=== PATIENT | female | born 1960 | race Caucasian/White ===

== ENCOUNTER → 2016-08-07 | Outpatient (CLI) | payer MEDICARE, MEDICAID ==
[2016-08-07 15:10] LABS: ALBUMIN 3.6 GM/DL (3.2-5.2); ALBUMIN/GLOBULIN RATIO 0.97 (1.00-1.93); ALKALINE PHOSPHATASE 57 U/L (45-117); ALT/SGPT 40 U/L (12-78); ANION GAP 6 MEQ/L (8-16); AST/SGOT 23 U/L (15-37); BILIRUBIN,TOTAL 0.4 MG/DL (0.2-1.0); BLOOD UREA NITROGEN 20 MG/DL (7-18); CARBON DIOXIDE LEVEL 32 MEQ/L (21-32); CHLORIDE LEVEL 104 MEQ/L (98-107); CHOLESTEROL LEVEL 218 MG/DL (<200); CREATININE FOR GFR 0.96 MG/DL (0.55-1.02); GLOMERULAR FILTRATION RATE > 60.0 (>51); GLUCOSE, FASTING 110 MG/DL (70-105); MAGNESIUM LEVEL 2.1 MG/DL (1.8-2.4); POTASSIUM SERUM 4.1 MEQ/L (3.5-5.1); SODIUM LEVEL 142 MEQ/L (136-145); TOTAL PROTEIN 7.3 GM/DL (6.4-8.2); TRIGLYCERIDES LEVEL 141 MG/DL (<150)
== END ==
LOC: M LAB 14:19 → MERGE 14:19
PROVIDERS: ATTEND Physician Assistant
DX: I50.33 Acute on chronic diastolic (congestive) heart failure (principal); E78.00 Pure hypercholesterolemia, unspecified

== ENCOUNTER → 2016-09-17 | Outpatient (CLI) | payer MEDICARE, MEDICAID ==
[2016-09-17 21:00] LABS: ALBUMIN 3.8 GM/DL (3.2-5.2); CREATININE FOR GFR 1.07 MG/DL (0.55-1.02); GLOMERULAR FILTRATION RATE 56.7 (>51); PHOSPHORUS LEVEL 2.7 MG/DL (2.5-4.9); POTASSIUM SERUM 3.7 MEQ/L (3.5-5.1)
== END ==
LOC: M LAB 19:21
PROVIDERS: ATTEND Physician Assistant
DX: I50.33 Acute on chronic diastolic (congestive) heart failure (principal)

== ENCOUNTER → 2016-10-31 | Outpatient (CLI) | payer MEDICARE, MEDICAID ==
[2016-10-31 13:57] LABS: ALBUMIN 3.5 GM/DL (3.2-5.2); CALCIUM LEVEL 8.4 MG/DL (8.5-10.1); CREATININE FOR GFR 1.05 MG/DL (0.55-1.02); GLOMERULAR FILTRATION RATE 57.9 (>51); PHOSPHORUS LEVEL 2.5 MG/DL (2.5-4.9); POTASSIUM SERUM 3.3 MEQ/L (3.5-5.1)
== END ==
LOC: M LAB 12:47
PROVIDERS: ATTEND Physician Assistant
DX: I50.33 Acute on chronic diastolic (congestive) heart failure (principal)

== ENCOUNTER → 2017-01-28 | Outpatient (CLI) | payer MEDICARE, MEDICAID ==
[2017-01-28 15:23] LABS: ALBUMIN 3.4 GM/DL (3.2-5.2); ANION GAP 8 MEQ/L (8-16); BLOOD UREA NITROGEN 15 MG/DL (7-18); CALCIUM LEVEL 8.9 MG/DL (8.5-10.1); CARBON DIOXIDE LEVEL 30 MEQ/L (21-32); CHLORIDE LEVEL 108 MEQ/L (98-107); CREATININE FOR GFR 0.97 MG/DL (0.55-1.02); GLOMERULAR FILTRATION RATE > 60.0 (>51); GLUCOSE, FASTING 126 MG/DL (70-105); MAGNESIUM LEVEL 2.1 MG/DL (1.8-2.4); PHOSPHORUS LEVEL 3.1 MG/DL (2.5-4.9); POTASSIUM SERUM 3.8 MEQ/L (3.5-5.1); SODIUM LEVEL 146 MEQ/L (136-145)
== END ==
LOC: M LAB 13:42
PROVIDERS: ATTEND Physician Assistant
DX: I50.33 Acute on chronic diastolic (congestive) heart failure (principal)

== ENCOUNTER → 2017-06-29 | Outpatient (CLI) | payer MEDICARE, MEDICAID ==
[2017-06-29 10:31] LABS: ALBUMIN 3.6 GM/DL (3.2-5.2); ANION GAP 6 MEQ/L (8-16); BLOOD UREA NITROGEN 19 MG/DL (7-18); CALCIUM LEVEL 9.4 MG/DL (8.5-10.1); CARBON DIOXIDE LEVEL 33 MEQ/L (21-32); CHLORIDE LEVEL 100 MEQ/L (98-107); CREATININE FOR GFR 1.09 MG/DL (0.55-1.02); GLOMERULAR FILTRATION RATE 55.3 (>51); GLUCOSE, FASTING 127 MG/DL (70-105); PHOSPHORUS LEVEL 3.3 MG/DL (2.5-4.9); POTASSIUM SERUM 3.9 MEQ/L (3.5-5.1); SODIUM LEVEL 139 MEQ/L (136-145)
== END ==
LOC: M LAB 08:46
DX: I50.33 Acute on chronic diastolic (congestive) heart failure (principal)
CPT/HCPCS: 80069

== ENCOUNTER → 2018-05-04 | Outpatient (CLI) | payer MEDICARE, MEDICAID ==
[2018-05-04 12:03] LABS: ANION GAP 7 MEQ/L (8-16); BLOOD UREA NITROGEN 20 MG/DL (7-18); CALCIUM LEVEL 8.5 MG/DL (8.5-10.1); CARBON DIOXIDE LEVEL 34 MEQ/L (21-32); CHLORIDE LEVEL 102 MEQ/L (98-107); CREATININE FOR GFR 1.21 MG/DL (0.55-1.30); GLOMERULAR FILTRATION RATE 48.8 (>51); GLUCOSE, FASTING 133 MG/DL (70-100); SODIUM LEVEL 143 MEQ/L (136-145)
== END ==
LOC: M LAB 10:28
DX: I50.32 Chronic diastolic (congestive) heart failure (principal)
CPT/HCPCS: 80048

== ENCOUNTER → 2018-09-10 | Outpatient (CLI) | payer MEDICARE, MEDICAID ==
[2018-09-10 10:54] LABS: CALCIUM LEVEL 8.8 MG/DL (8.5-10.1); CREATININE FOR GFR 1.03 MG/DL (0.55-1.30); GLOMERULAR FILTRATION RATE 58.8 (>51)
== END ==
LOC: M LAB 09:44
PROVIDERS: ATTEND Physician Assistant
DX: I50.32 Chronic diastolic (congestive) heart failure (principal)

== ENCOUNTER 2018-10-15 11:04 | Emergency (ER) | payer MEDICARE, MEDICAID ==
[2018-10-15] MEDS ORDERED: RANI150T14 (11:11)
[2018-10-15] MEDS ORDERED: POTA20TA6 (11:11)
[2018-10-15] MEDS ORDERED: PANT40TA3 (11:11)
[2018-10-15] MEDS ORDERED: CARV12.5 (11:11)
[2018-10-15] MEDS ORDERED: LISI-538 (11:11)
[2018-10-15] MEDS ORDERED: SPIR-10 (11:11)
[2018-10-15] MEDS ORDERED: TORS20TA2 (11:11)
[2018-10-15 11:34] LABS: BASO % 0.3 % (0.0-1.0); EOS # 0.3 10^3/uL (0.0-0.50); EOS % 2.5 % (0.0-3.0); HEMATOCRIT 42.3 % (36.0-47.0); HEMOGLOBIN 13.6 g/dl (12.0-15.5); LYMPH # 1.6 10^3/uL (1.5-4.5); MEAN CORPUSCULAR HEMOGLOBIN 29.1 pg (27.0-33.0); MEAN CORPUSCULAR HGB CONC 32.2 g/dl (32.0-36.5); MEAN CORPUSCULAR VOLUME 90.4 fl (80.0-96.0); MONO # 0.6 10^3/uL (0.0-0.8); MONO % 6.1 % (0.0-5.0); NEUTROPHILS # 7.5 10^3/uL (1.8-7.7); NEUTROPHILS % 74.7 % (36.0-66.0); PLATELET COUNT, AUTOMATED 306 10^3/uL (150-450); RED BLOOD COUNT 4.68 10^6/uL (4.00-5.40)
[2018-10-15 11:45] LABS: INR 0.93; PROTHROMBIN TIME 12.6 SECONDS (12.1-14.4)
[2018-10-15 11:46] LABS: PARTIAL THROMBOPLASTIN TIME 26.1 SECONDS (25.4-37.6)
--- NOTE | 2018-10-15 12:16 | REP ---
CHEST X-RAY: Two views. HISTORY: Chest pain. COMPARISON STUDY: November 19 1013. FINDINGS: EKG electrodes are seen. Moderate cardiac enlargement is again noted unchanged. Cardiothoracic ratio today measures 58.1%. Pulmonary vasculature is cephalized. No pleural effusion or pulmonary edema is seen. No focal infiltrate is seen. No significant bony abnormality. There is a minimal linear density in the left perihilar region consistent with plate-like atelectasis. Lung pat are otherwise clear. IMPRESSION: Moderate cardiac enlargement. There is minimal linear plate-like atelectasis on the left at midlung field level. Vascular cephalization. Otherwise no acute disease. Electronically Signed by Frank Pappas MD 10/15/2018 01:10 P
[2018-10-15 12:21] LABS: ALBUMIN 3.7 GM/DL (3.2-5.2); ALT/SGPT 35 U/L (12-78); BILIRUBIN,DIRECT 0.1 MG/DL (0.0-0.2); BILIRUBIN,TOTAL 0.5 MG/DL (0.2-1.0); BLOOD UREA NITROGEN 13 MG/DL (7-18); CARBON DIOXIDE LEVEL 32 MEQ/L (21-32); CHLORIDE LEVEL 103 MEQ/L (98-107); CPK CREATINE PHOSPHOKINASE 81 U/L (26-192); CREATININE FOR GFR 1.06 MG/DL (0.55-1.30); FREE T4 1.09 NG/DL (0.76-1.46); GLOMERULAR FILTRATION RATE 56.9 (>51); GLUCOSE, FASTING 125 MG/DL (70-100); MB/CK RELATIVE INDEX 1.73 (< OR =4); NT-PRO BNP 351 PG/ML (<125); SODIUM LEVEL 141 MEQ/L (136-145); TOTAL PROTEIN 7.7 GM/DL (6.4-8.2); TROPONIN I < 0.02 NG/ML (< 0.10)
[2018-10-15] MEDS ORDERED: FUROSEMIDE 100 MG/10 ML VIAL (J1940) IV ONE (13:00)
[2018-10-15 16:29] VITALS: BP 144/75
--- NOTE | 2018-10-16 07:17 | ECGEPIP ---
Stationary ECG Study [facility] - ED Test Date: 2018-10-15 Pat Name: MIRYAM STINSON Department: Room: - Gender: F Sample Card Maker: BREE : 1960 Requested By: MATTHEW Lazaro Order Number: [id number] Reading MD: Nathan Yoo Measurements Intervals Landers Rate: 72 P: 31 MS: 156 QRS: 7 QRSD: 90 T: 45 QT: 423 QTc: 465 Interpretive Statements SINUS RHYTHM MODERATE VOLTAGE CRITERIA FOR LVH, CONSIDER NORMAL VARIANT NO PRIORS FOR COMPARISON Electronically Signed On 10-16-2018 7:17:41 EDT by Nathan Yoo
== END 2018-10-15 16:47 | disposition home or self-care (01) ==
LOC: EDBD 11:04 → M ED 11:04
DX: I50.9 Heart failure, unspecified (principal); I11.0 Hypertensive heart disease with heart failure; E78.5 Hyperlipidemia, unspecified; G47.33 Obstructive sleep apnea (adult) (pediatric); E66.8 Other obesity; Z79.899 Other long term (current) drug therapy
CPT/HCPCS: 71046; 80048; 80076; 82550; 82553; 83880; 84439; 84443; 84484; 85025; 85610; 85730; 93005; 93041; 94760; 96374; 99285; J1940

== ENCOUNTER → 2018-12-04 | Outpatient (REF) | payer MEDICARE, MEDICAID ==
[~2018-12-04] MED LIST: CARV12.5; LISI-538; PANT40TA3; POTA20TA6; RANI150T14; SPIR-10; TORS20TA2
[2018-12-04 18:00] LABS: BASO % 0.3 % (0.0-1.0); EOS # 0.3 10^3/uL (0.0-0.50); EOS % 2.5 % (0.0-3.0); HEMOGLOBIN 12.6 g/dl (12.0-15.5); LYMPH # 1.7 10^3/uL (1.5-4.5); LYMPH % 14.4 % (24.0-44.0); MEAN CORPUSCULAR HEMOGLOBIN 28.7 pg (27.0-33.0); MEAN CORPUSCULAR HGB CONC 32.3 g/dl (32.0-36.5); MEAN CORPUSCULAR VOLUME 88.8 fl (80.0-96.0); MONO # 0.8 10^3/uL (0.0-0.8); MONO % 7.1 % (0.0-5.0); NEUTROPHILS # 8.9 10^3/uL (1.8-7.7); NEUTROPHILS % 75.2 % (36.0-66.0); PLATELET COUNT, AUTOMATED 290 10^3/uL (150-450); RED BLOOD COUNT 4.39 10^6/uL (4.00-5.40); WHITE BLOOD COUNT 11.8 10^3/uL (4.0-10.0)
[2018-12-04 18:08] LABS: ALBUMIN 3.4 GM/DL (3.2-5.2); BILIRUBIN,TOTAL 0.5 MG/DL (0.2-1.0); CALCIUM LEVEL 8.9 MG/DL (8.5-10.1); CHOLESTEROL RISK RATIO 4.458 (<5); CREATININE FOR GFR 1.02 MG/DL (0.55-1.30); GLOMERULAR FILTRATION RATE 59.5 (>51); POTASSIUM SERUM 3.5 MEQ/L (3.5-5.1); THYROID STIMULATING HORMONE 2.78 uIU/ML (0.358-3.740); TOTAL 25(OH) VITAMIN D 10.3 NG/ML (30.0-100.0); TOTAL PROTEIN 7.6 GM/DL (6.4-8.2)
[2018-12-04 18:11] LABS: HEMOGLOBIN A1c 7.4 %
== END ==
LOC: M LAB REF 16:37
PROVIDERS: ATTEND Nurse Practitioner Family
DX: Z13.9 Encounter for screening, unspecified (principal); E78.5 Hyperlipidemia, unspecified; I10 Essential (primary) hypertension; R73.03 Prediabetes; Z79.899 Other long term (current) drug therapy

== ENCOUNTER → 2019-02-09 | Outpatient (CLI) | payer MEDICARE, MEDICAID ==
--- NOTE | 2019-02-11 12:48 | SLEEPCENT ---
DATE OF STUDY: 02/09/2019 ORDERED BY: ALVINA Baltazar Nocturnal polysomnography was performed for evaluation of sleep physiology in this patient with history of excessive somnolence and nonrestorative sleep, who has comorbidities of congestive heart failure, hypertension and acid reflux. 7 hours and 21 minutes of data were reviewed. There were 398 minutes of sleep identified. Sleep latency was normal at 12 minutes. Rapid eye movement (REM) latency was short at 10 minutes. Sleep architecture was fairly well-preserved with 4-5 REM cycles. Overall sleep efficiency 91.7%. The patient's electrocardiogram showed a sinus rhythm with an average heart rate of 64 beats per minute. Electroencephalogram (EEG) showed normal waveforms for awake and sleep. There were 43 respiratory events identified of 10 seconds in duration or greater for an apnea-hypopnea index of 6.5. The events were primarily obstructive, not exclusive to sleep stage but seen in the supine posture. Patient spent the entire night in the supine position with scattered limb activity noted and snoring was seen over the course of the study. IMPRESSION: Obstructive sleep apnea syndrome (G47.33). Apnea-hypopnea index 6.5. RECOMMENDATIONS: Sleep position retraining for avoidance of the supine posture may be helpful. However, if the patient's symptoms persists referral back to sleep disorder center for pressure therapy should be considered.
== END ==
LOC: M SLEEP 19:42
PROVIDERS: ATTEND Nurse Practitioner Family
DX: G47.33 Obstructive sleep apnea (adult) (pediatric) (principal)

== ENCOUNTER → 2019-03-31 | Outpatient (CLI) | payer MEDICARE, MEDICAID ==
--- NOTE | 2019-04-01 19:39 | SLEEPCENT ---
DATE OF PROCEDURE: 03/31/2019 ORDERED BY: ALVINA Baltazar Nocturnal polysomnography was performed for the titration of pressure therapy in this patient with obstructive sleep apnea syndrome. Apnea-hypopnea index is 6.5. For testing the patient was fit with a [employer] AirFit F28 full face mask of medium size, 4 cm of water pressure was initially applied to the circuit, and the lights were extinguished. 7 hours and 28 minutes of data were reviewed. There were 316.5 minutes of sleep identified. Sleep latency was prolonged at 46.5 minutes. Rapid eye movement (REM) latency was short at 55.5 minutes. Sleep architecture was fair. There were some periods of wake, but there were three REM cycles. Overall sleep efficiency 68.7%. The patient's electrocardiogram showed a sinus rhythm with an average heart rate of 64 beats per minute. EEG showed mild coarsening in background, some EKG bleed through. No focal events and normal waveforms for awake and sleep. Persistence of respiratory events prompted an increase in continuous positive airway pressure (CPAP) pressure. Best sleep was seen on a CPAP pressure of +17 with which the patient slept through REM without respiratory event or oxygen desaturation in the supine posture. Some limb activity was noted. There were two trains of 30 events on the study. Limb movement arousal index was only 1.9. IMPRESSION: Obstructive sleep apnea syndrome (G47.33). RECOMMENDATIONS: Nightly use of pressure therapy 17 cm of water.
== END ==
LOC: M SLEEP 19:47
PROVIDERS: ATTEND Nurse Practitioner Family
DX: G47.33 Obstructive sleep apnea (adult) (pediatric) (principal)

== ENCOUNTER → 2019-06-10 | Outpatient (CLI) | payer MEDICARE, MEDICAID ==
--- NOTE | 2019-06-10 14:04 | REP ---
Bilateral lower extremity arterial Doppler ultrasound: History: Chronic venous insufficiency. Lymph edema. Pressure ulcer. Findings: Ankle brachial indices could not be measured due to patient tolerance of the blood pressure cuff. Generally poor image quality was encountered due to edema and patient body habitus. Monophasic waveforms are noted in the right lower extremity from the mid superficial femoral artery distally. Left lower extremity wave forms are abnormal monophasic distal to the common femoral artery bifurcation. Multiple arterial segments could not be seen on either side. Right lower extremity arterial Doppler velocity chart: CF A 145 cm/S Profunda 91 Proximal SFA 128 Mid SFA 148 Distal SFA 132 Popliteal 45 Proximal AT A not seen Tibioperoneal trunk not seen Proximal BRAND AMBASSADOR PROMOTIONAL MODEL not seen Distal BRAND AMBASSADOR PROMOTIONAL MODEL not seen Distal AT A 104 Left lower extremity arterial Doppler velocity chart: CF A 119 cm/S Profunda 64 Proximal SFA 133 Mid SFA 124 Distal SFA not seen Popliteal not seen Proximal AT A not seen Tibioperoneal trunk not seen Proximal BRAND AMBASSADOR PROMOTIONAL MODEL not seen Distal BRAND AMBASSADOR PROMOTIONAL MODEL 72 Distal AT A 103 Electronically Signed by Frank Pappas MD 06/10/2019 01:55 P
== END ==
LOC: M RAD 11:43
PROVIDERS: ATTEND Physician Assistant
DX: I88.0 Nonspecific mesenteric lymphadenitis (principal); I87.311 Chronic venous hypertension (idiopathic) with ulcer of right lower extremity; I87.312 Chronic venous hypertension (idiopathic) with ulcer of left lower extremity; L97.812 Non-pressure chronic ulcer of other part of right lower leg with fat layer exposed; L97.322 Non-pressure chronic ulcer of left ankle with fat layer exposed

== ENCOUNTER → 2019-06-22 | Outpatient (POV) | payer MEDICARE, MEDICAID ==
[~2019-06-22] VITALS: Ht 157.5 cm; Wt 154.5 kg
[2019-06-22 13:15] VITALS: BP 159/79
--- NOTE | 2019-06-23 09:30 | IRCOV ---
[facility] [place] IR Consult Office Visit IR Consult Office Visit DATE: Jun 22, 2019 REASON FOR CONSULTATION/CHIEF COMPLAINT: Venous ulcers. Swelling. HISTORY OF PRESENT ILLNESS: 59-year-old female with diabetes, hypertension, hyperlipidemia and heart failure presents with bilateral lower extremity lymphedema for several months. This is associated with what she describes as water blisters which appear and don't heal easily. She describes tightness in the legs bilaterally which is worse when she walks and relieved by rest. She denies rest pain. She describes the legs burn and itch. She sleeps in a recliner and can't lay flat. She is able to elevate the legs without pain. She has shortness of breath on minimal exertion. Denies chest pain, prior stroke or [place]. ALLERGIES: Please see below. HOME MEDICATIONS: Please see below. PAST MEDICAL HISTORY: Hypertension Hyperlipidemia Type 2 diabetes Sleep apnea COPD PAST SURGICAL HISTORY: Appendectomy FAMILY HISTORY: Noncontributory. SOCIAL HISTORY: Nonsmoker. No alcohol or drugs. REVIEW OF SYSTEMS: Otherwise negative PHYSICAL EXAMINATION: VITAL SIGNS: Please see below. GENERAL APPEARANCE: Appears well. Comfortable at rest. HEENT: No scleral icterus. RESPIRATORY: Symmetric breath sounds. CARDIOVASCULAR: Normal rate. Heart murmur. ABDOMEN: Protuberant. Midline obesity. Nontender. EXTREMITIES: Right lower extremity: Lymphedema. Skin red. Hairless. Warm. Nontender. Pedal pulses nonpalpable. Left lower extremity: Lymphedema. Skin red. Warm. Hairless. Nontender. Pedal pulses nonpalpable. NEUROLOGICAL: Alert and oriented. PSYCHIATRIC: Appropriate to circumstance. LABORATORY DATA: 12/04/2018 hemoglobin 12.6 hematocrit 39 WBC 11.8 platelets 290 sodium 141 potassium 3.5 BUN 16 creatinine 1.02 Imaging: I personally reviewed her lower extremity arterial ultrasound from June 2019. There is abnormal monophasic waveform groin down in the bilateral lower extremities. No venous reflux study available. ASSESSMENT/PLAN: 59-year-old female with coronary risk factors presents with bilateral lower extremity pain and nonhealing ulcers. I agree bilateral lower extremity angiograms to look at inflow, outflow and runoff is indicated. I will also order bilateral lower extremity venous reflux study to look for superficial venous reflux, varicose veins and venous hypertension. If her arteries are acceptable she can then receive high-grade compression for her lymphedema. If she has varicose veins and superficial venous reflux we can perform EVLT. We have scheduled the patient for angiogram and venous ultrasound. I spent 30 minutes in consultation with the patient. Thank you for this referral. Cc Jaye Oconnor Allergies Coded Allergies: No Known Allergies (Verified , 08/07/16) Home Medications Miscellaneous Medications Carvedilol (Carvedilol), (Reported) Lisinopril (Lisinopril), (Reported) Pantoprazole Sodium (Pantoprazole Sodium), (Reported) Potassium Chloride (Potassium Chloride), (Reported) Ranitidine HCl (Ranitidine HCl), (Reported) Spironolactone (Spironolactone), (Reported) Torsemide (Torsemide), (Reported) VS, I&O, 24H, Fishbone Vital Signs/I&O Vital Signs Date Time Temp Pulse Resp B/P (MAP) Pulse Ox O2 Delivery O2 Flow Rate FiO2 06/22/19 13:15 99.1 79 20 159/79 (105) 94 Room Air ROSALIA FUNEZ MD Jun 23, 2019 09:30
== END ==
LOC: M IRPOV 12:56
PROVIDERS: ATTEND Radiology Diagnostic Radiology
DX: E11.622 Type 2 diabetes mellitus with other skin ulcer (principal); L97.929 Non-pressure chronic ulcer of unspecified part of left lower leg with unspecified severity; L97.919 Non-pressure chronic ulcer of unspecified part of right lower leg with unspecified severity; M79.604 Pain in right leg; M79.605 Pain in left leg; I11.9 Hypertensive heart disease without heart failure; E78.5 Hyperlipidemia, unspecified; I89.0 Lymphedema, not elsewhere classified; I50.9 Heart failure, unspecified; G47.33 Obstructive sleep apnea (adult) (pediatric); J44.9 Chronic obstructive pulmonary disease, unspecified

== ENCOUNTER → 2019-07-01 | Outpatient (CLI) | payer MEDICARE, MEDICAID ==
--- NOTE | 2019-07-01 14:27 | REP ---
Bilateral lower extremity deep vein duplex ultrasound: The deep veins demonstrate normal compression, normal Doppler color flow and normal Doppler waveforms with respiration augmentation from the popliteal veins to the common femoral veins bilaterally. Impression: There is no deep vein thrombus in the right or left lower extremities. Lower Extremity Venous Reflux: Positive reflux is greater than 0.5 seconds. Right Reflux Left Reflux CFV Reflux trivial trivial Ant. Acc. GSV Present no no Reflux no no Greater saph/fem junction no mm eight no mm 6.8 Greater saph vein mid thigh no mm 2.6 no mm 5.4 Greater saph vein at knee no mm 8.4 no mm 6.7 SFV PROX no no SFV MID no no SFV DISTAL no no POPLITEAL VEIN -- -- LSV -- mm -- -- mm -- the Impression: There is no reflux on the right or the left. There are pulsatile venous wave forms. This may indicate elevated right heart pressure. Correlation clinically is recommended. Electronically Signed by Gabriel Bruce MD 07/01/2019 02:18 P
== END ==
LOC: M RAD 12:21
PROVIDERS: ATTEND Radiology Diagnostic Radiology
DX: I83.019 Varicose veins of right lower extremity with ulcer of unspecified site (principal); I83.029 Varicose veins of left lower extremity with ulcer of unspecified site; M79.661 Pain in right lower leg; M79.662 Pain in left lower leg

== ENCOUNTER → 2019-07-08 | Outpatient (CLI) | payer MEDICARE, MEDICAID ==
[~2019-07-08] MED LIST changes: +BENA25CA4 PO; +HEPARIN 1,000 UNITS/ML 10ML VIAL (FOR RADIOLOGY& DIALYSIS ONLY)(J1644-10) As Ordered ONE; +ISOVUE-300 61% 50ML VIAL (Q9967) As Ordered ONE; +LIDOCAINE 1% MDV 20ML VIAL As Ordered ONE; +METF500T13 PO; +MIDAZOLAM INJ 2 MG/2 ML VIAL (J2250) As Ordered ONE; +diphenhydrAMINE INJ 50MG/ML VIAL (J1200) As Ordered ONE; +fentaNYL 100 MCG/2 ML INJECTION (J3010) As Ordered ONE
--- NOTE | 2019-07-08 12:16 | IRHP ---
[facility] IR Pre-Procedure H & P General Date of Service: Jul 08, 2019 Procedure: Same Day Surgery Interval History and Physical I have seen the patient and reviewed last H & P performed within 30 days. There is no significant interval change. History of Present Illness Chief Complaint The patient is a 59-year-old female admitted with a reason for visit of Claudication. PRE-PROCEDURE DIAGNOSIS: PAD HEART: normal rate. LUNGS: normal breathing at rest. ASA Classification ASA Classification: III-Severe systemic dis. Mallampati Score: II NPO: Yes Problems with prior sedation: No Obstructive Sleep Apnea: Yes Plan moderate sedation Allergies Coded Allergies: No Known Allergies (Verified , 08/07/16) Home Medications Scheduled Metformin HCl (Metformin HCl), 500 MG PO BID, (Reported) Miscellaneous Medications Carvedilol (Carvedilol), (Reported) Lisinopril (Lisinopril), (Reported) Pantoprazole Sodium (Pantoprazole Sodium), (Reported) Potassium Chloride (Potassium Chloride), (Reported) Spironolactone (Spironolactone), (Reported) Torsemide (Torsemide), (Reported) Discontinued Medications Ranitidine HCl (Ranitidine HCl), (Reported) Discontinued Reason: Pt states not taking ROSALIA FUNEZ MD Jul 08, 2019 12:16
[2019-07-08 12:32] LABS: HEMATOCRIT 44.5 % (36.0-47.0); HEMOGLOBIN 13.5 g/dl (12.0-15.5); MEAN CORPUSCULAR HEMOGLOBIN 27.4 pg (27.0-33.0); MEAN CORPUSCULAR HGB CONC 30.3 g/dl (32.0-36.5); MEAN CORPUSCULAR VOLUME 90.3 fl (80.0-96.0); PLATELET COUNT, AUTOMATED 292 10^3/uL (150-450); RED BLOOD COUNT 4.93 10^6/uL (4.00-5.40)
[2019-07-08 12:52] LABS: ALBUMIN 3.5 GM/DL (3.2-5.2); BILIRUBIN,TOTAL 0.3 MG/DL (0.2-1.0); CREATININE FOR GFR 1.2 MG/DL (0.55-1.30); GLOMERULAR FILTRATION RATE 49.1 (>51); POTASSIUM SERUM 4.1 MEQ/L (3.5-5.1); TOTAL PROTEIN 7.7 GM/DL (6.4-8.2)
--- NOTE | 2019-07-08 14:04 | POST-OPPD ---
Postoperative Procedure Note Date Of Procedure: Jul 08, 2019 Time Of Procedure: 14:01 PREOPERATIVE DIAGNOSIS: PAD POSTOPERATIVE DIAGNOSIS: PAD FINDINGS: bilateral lower extremity angiogram demonstrates patent inflow, outflow and run off. PROCEDURE: bilateral lower extremity angiogram SURGEON: tyree ANESTHESIA: mod sed ESTIMATED BLOOD LOSS: < 5 ml COMPLICATIONS: none POSTOPERATIVE CONDITION: stable ROSALIA FUNEZ MD Jul 08, 2019 14:04
[2019-07-08 17:36] VITALS: BP 157/73
--- NOTE | 2019-07-09 12:07 | REP ---
IR Left leg angiogram. IR Right leg angiogram. IR Ultrasound guided right femoral artery access. IR moderate sedation. Clinical Information: Bilateral lower extremity intermittent claudication. Bilateral lower extremity wounds. Will require high-grade compression for lymphedema. Physician: Dr Rivera.Procedure: The patient was advised of the benefits, risks, and alternatives of the procedure and informed consent was obtained.A time out was performed with verification of the patient's name, MRN, site of procedure, and type of procedure to be performed. The patient was positioned in the supine position on the angiographic table. The site was prepped and draped in the usual sterile fashion.Moderate sedation was performed by the physician including the presence of an independent trained observer who assisted in monitoring the patient's level of consciousness and physiological status. Following the administration of Fentanyl and Versed, the physician spent 60 minutes of continuous [id number]-tliw time with the patient. A reptile farmer radiograph reveals no gross abnormality. The right femoral artery was accessed under ultrasound guidance, with a micropuncture kit. A gis.to wire was advanced into the aorta. The micropuncture sheath was exchanged over the wire for a a 6-[place] vascular sheath. A 5-[place] flush catheter was advanced over the wire and used to catheterize the abdominal aorta. A pelvic arteriogram was performed. This demonstrates patent left common iliac, external iliac and internal iliac arteries. Left leg angiogram: A Glidewire was advanced through the flush catheter and under fluoroscopy guidance was used to gain up and over access into the left common iliac artery. The flush catheter was exchanged over the wire for a glide cath. The glide cath in conjunction with a Glidewire was used to catheterize the left common femoral artery. A left leg angiogram was performed from this location. This demonstrates patent left common femoral artery, superficial femoral artery, profunda femoris. An angiogram further down the leg was performed and this demonstrates patent mid and distal superficial femoral artery and patent popliteal artery. A below-knee runoff arteriogram was performed and this demonstrates patent anterior tibial and posterior tibial artery coursing all the way into the foot. Patent peroneal artery. The catheter was removed. Right leg angiogram: A right leg angiogram was performed through the right groin sheath. This demonstrates patent right common femoral artery, superficial femoral artery, profunda femoris. An angiogram further down the leg was performed and this demonstrates patent mid and distal superficial femoral artery and patent popliteal artery. A below-knee runoff arteriogram was performed and this demonstrates patent anterior tibial and posterior tibial artery coursing all the way into the foot. Patent peroneal artery. A 6-[place] Mynx device was used to close the groin arteriotomy and the sheath was removed. Hemostasis achieved. A sterile dressing was applied to the site. Patient tolerated the procedure well and was transferred to PRU in stable condition. Complications: None. Estimated blood loss: Less than 5 ml. Impression: 1. Left leg angiogram demonstrates patent inflow, outflow and good runoff vessels all the way into the foot. No significant stenosis. 2. Right leg angiogram demonstrates patent inflow, outflow and good runoff vessels all the way into the foot. No significant stenosis. Thank you for this referral. JENNIFER Oconnor Electronically Signed by Madisyn Rivera MD 07/09/2019 12:06 P
== END ==
LOC: M IRPRO 11:22
PROVIDERS: ATTEND Radiology Diagnostic Radiology
DX: I70.213 Atherosclerosis of native arteries of extremities with intermittent claudication, bilateral legs (principal); I70.25 Atherosclerosis of native arteries of other extremities with ulceration; I89.0 Lymphedema, not elsewhere classified
CPT/HCPCS: 36246; 75716; 80053; 85027; 99152; 99153; C1760; C1769; C1887; C1894; G0269; J1200; J1644; J2250; J3010; Q9967

== ENCOUNTER 2019-08-17 13:52 | Outpatient (RCR) | payer MEDICARE, MEDICAID ==
[~2019-08-17 13:52] MED LIST changes: -HEPARIN 1,000 UNITS/ML 10ML VIAL (FOR RADIOLOGY& DIALYSIS ONLY)(J1644-10) As Ordered ONE; -ISOVUE-300 61% 50ML VIAL (Q9967) As Ordered ONE; -LIDOCAINE 1% MDV 20ML VIAL As Ordered ONE; -MIDAZOLAM INJ 2 MG/2 ML VIAL (J2250) As Ordered ONE; -diphenhydrAMINE INJ 50MG/ML VIAL (J1200) As Ordered ONE; -fentaNYL 100 MCG/2 ML INJECTION (J3010) As Ordered ONE
== END 2019-09-07 ==
LOC: M PT 13:52
PROVIDERS: ATTEND Physician Assistant
DX: Z51.89 Encounter for other specified aftercare (principal); I87.311 Chronic venous hypertension (idiopathic) with ulcer of right lower extremity

== ENCOUNTER → 2019-09-15 | Outpatient (REF) | payer MEDICARE, MEDICAID ==
[2019-09-15 16:37] LABS: BASO % 0.3 % (0.0-1.0); EOS # 0.3 10^3/uL (0.0-0.5); EOS % 2.8 % (0.0-3.0); HEMATOCRIT 34.9 % (36.0-47.0); HEMOGLOBIN 11.1 g/dl (12.0-15.5); LYMPH # 1.5 10^3/uL (1.5-5.0); LYMPH % 16.5 % (24.0-44.0); MEAN CORPUSCULAR HEMOGLOBIN 28.4 pg (27.0-33.0); MEAN CORPUSCULAR HGB CONC 31.8 g/dl (32.0-36.5); MEAN CORPUSCULAR VOLUME 89.3 fl (80.0-96.0); MONO # 0.8 10^3/uL (0.0-0.8); MONO % 9.3 % (0.0-5.0); NEUTROPHILS # 6.3 10^3/uL (1.5-8.5); NEUTROPHILS % 70.5 % (36.0-66.0); PLATELET COUNT, AUTOMATED 278 10^3/uL (150-450); RED BLOOD COUNT 3.91 10^6/uL (4.00-5.40)
[2019-09-15 16:46] LABS: ALBUMIN 3.1 GM/DL (3.2-5.2); BILIRUBIN,TOTAL 0.3 MG/DL (0.2-1.0); CALCIUM LEVEL 8.9 MG/DL (8.5-10.1); CHOLESTEROL RISK RATIO 3.514 (<5); CREATININE FOR GFR 1.17 MG/DL (0.55-1.30); GLOMERULAR FILTRATION RATE 50.6 (>51); POTASSIUM SERUM 3.5 MEQ/L (3.5-5.1); THYROID STIMULATING HORMONE 2.87 uIU/ML (0.358-3.740)
[2019-09-15 16:48] LABS: TOTAL 25(OH) VITAMIN D 15.9 NG/ML (30.0-100.0)
[2019-09-15 17:08] LABS: HEMOGLOBIN A1c 8.5 %
== END ==
LOC: M LAB REF 16:17
PROVIDERS: ATTEND Nurse Practitioner Family
DX: N17.9 Acute kidney failure, unspecified (principal); Z74.09 Other reduced mobility; Z13.9 Encounter for screening, unspecified; E11.9 Type 2 diabetes mellitus without complications; K21.9 Gastro-esophageal reflux disease without esophagitis; I10 Essential (primary) hypertension; E78.5 Hyperlipidemia, unspecified

== ENCOUNTER 2019-10-06 14:38 | Outpatient (RCR) | payer MEDICARE, MEDICAID | END 2019-10-07 | LOC: M PT 14:38 | PROVIDERS: ATTEND Physician Assistant | DX: I87.311 Chronic venous hypertension (idiopathic) with ulcer of right lower extremity (principal) ==

== ENCOUNTER 2019-11-05 15:00 | Outpatient (RCR) | payer MEDICARE, MEDICAID | END 2019-11-07 | LOC: M PT 15:00 | PROVIDERS: ATTEND Physician Assistant | DX: I89.0 Lymphedema, not elsewhere classified (principal); I87.311 Chronic venous hypertension (idiopathic) with ulcer of right lower extremity ==

== ENCOUNTER → 2019-11-09 | Outpatient (REF) | payer MEDICARE, MEDICAID ==
[2019-11-09 19:28] LABS: PERCENT SATURATION 16.1 % (13.2-45.0)
[2019-11-09 21:04] LABS: FOLATE 12.8 NG/ML
== END ==
LOC: M LAB REF 16:46
PROVIDERS: ATTEND Internal Medicine Nephrology
DX: D64.9 Anemia, unspecified (principal)

== ENCOUNTER 2019-11-18 13:30 | Outpatient (RCR) | payer MEDICARE, MEDICAID | END 2019-12-07 | LOC: M PT 13:30 | PROVIDERS: ATTEND Physician Assistant | DX: Z51.89 Encounter for other specified aftercare (principal); I87.311 Chronic venous hypertension (idiopathic) with ulcer of right lower extremity ==

== ENCOUNTER → 2019-11-30 | Outpatient (REF) | payer MEDICARE, MEDICAID | LOC: M LAB REF 16:18 | PROVIDERS: ATTEND Physician Assistant | DX: J02.9 Acute pharyngitis, unspecified (principal) ==

== ENCOUNTER 2019-12-09 19:54 | Emergency (ER) | payer MEDICARE, MEDICAID ==
[~2019-12-09] VITALS: Ht 157.5 cm; Wt 149.6 kg
[~2019-12-09 19:54] MED LIST changes: +PANT40TA29; -PANT40TA3
[2019-12-09] MEDS ORDERED: NS 1,000 ML IV ONE (20:45)
[2019-12-09] MEDS ORDERED: ACETAMINOPHEN 325 MG TAB PO ONE (20:45)
[2019-12-09 21:01] LABS: BASO % 0.2 % (0.0-1.0); EOS % 0.1 % (0.0-3.0); HEMATOCRIT 38.3 % (36.0-47.0); HEMOGLOBIN 12.1 g/dl (12.0-15.5); LYMPH # 0.9 10^3/uL (1.5-5.0); LYMPH % 10.3 % (24.0-44.0); MEAN CORPUSCULAR HEMOGLOBIN 27.1 pg (27.0-33.0); MEAN CORPUSCULAR HGB CONC 31.6 g/dl (32.0-36.5); MEAN CORPUSCULAR VOLUME 85.7 fl (80.0-96.0); MONO # 0.6 10^3/uL (0.0-0.8); MONO % 7.2 % (0.0-5.0); NEUTROPHILS # 7.2 10^3/uL (1.5-8.5); NEUTROPHILS % 81.9 % (36.0-66.0); PLATELET COUNT, AUTOMATED 236 10^3/uL (150-450); RED BLOOD COUNT 4.47 10^6/uL (4.00-5.40); WHITE BLOOD COUNT 8.8 10^3/uL (4.0-10.0)
[2019-12-09 21:08] LABS: ALBUMIN 3.7 GM/DL (3.2-5.2); BILIRUBIN,DIRECT 0.2 MG/DL (0.0-0.2); BILIRUBIN,TOTAL 0.7 MG/DL (0.2-1.0); CALCIUM LEVEL 9.4 MG/DL (8.5-10.1); CREATININE FOR GFR 1.15 MG/DL (0.55-1.30); GLOMERULAR FILTRATION RATE 51.6 (>51); POTASSIUM SERUM 3.6 MEQ/L (3.5-5.1); TOTAL PROTEIN 7.9 GM/DL (6.4-8.2)
[2019-12-09 23:31] VITALS: BP 157/74
== END 2019-12-10 00:04 | disposition home or self-care (01) ==
LOC: M ED 19:54
DX: R60.9 Edema, unspecified (principal); R50.9 Fever, unspecified; E11.9 Type 2 diabetes mellitus without complications; I10 Essential (primary) hypertension; J44.9 Chronic obstructive pulmonary disease, unspecified; N28.9 Disorder of kidney and ureter, unspecified; K21.9 Gastro-esophageal reflux disease without esophagitis; Z79.899 Other long term (current) drug therapy; Z79.84 Long term (current) use of oral hypoglycemic drugs

== ENCOUNTER 2020-03-21 12:39 | Outpatient (RCR) | payer MEDICARE, MEDICAID | END 2020-04-08 | LOC: M PT 12:39 | PROVIDERS: ATTEND Physician Assistant | DX: Z51.89 Encounter for other specified aftercare (principal); I87.311 Chronic venous hypertension (idiopathic) with ulcer of right lower extremity ==

== ENCOUNTER → 2020-05-23 | Outpatient (REF) | payer MEDICARE, MEDICAID ==
[2020-05-23 17:20] LABS: BASO # 0.1 10^3/uL (0.0-0.2); BASO % 0.5 % (0.0-1.0); EOS # 0.3 10^3/uL (0.0-0.5); EOS % 2.8 % (0.0-3.0); HEMATOCRIT 38.7 % (36.0-47.0); HEMOGLOBIN 12.2 g/dl (12.0-15.5); LYMPH # 1.5 10^3/uL (1.5-5.0); LYMPH % 15.3 % (24.0-44.0); MEAN CORPUSCULAR HEMOGLOBIN 28.8 pg (27.0-33.0); MEAN CORPUSCULAR HGB CONC 31.5 g/dl (32.0-36.5); MEAN CORPUSCULAR VOLUME 91.3 fl (80.0-96.0); MONO # 0.6 10^3/uL (0.0-0.8); MONO % 6.4 % (0.0-5.0); NEUTROPHILS # 7.1 10^3/uL (1.5-8.5); NEUTROPHILS % 74.6 % (36.0-66.0); PLATELET COUNT, AUTOMATED 301 10^3/uL (150-450); RED BLOOD COUNT 4.24 10^6/uL (4.00-5.40); WHITE BLOOD COUNT 9.6 10^3/uL (4.0-10.0)
[2020-05-23 17:25] LABS: ALBUMIN 3.7 GM/DL (3.2-5.2); BILIRUBIN,TOTAL 0.4 MG/DL (0.2-1.0); CALCIUM LEVEL 9.2 MG/DL (8.5-10.1); CHOLESTEROL RISK RATIO 3.162 (<5); CREATININE FOR GFR 1.18 MG/DL (0.55-1.30); FREE T4 1.02 NG/DL (0.76-1.46); GLOMERULAR FILTRATION RATE 49.9 (>51); POTASSIUM SERUM 4.6 MEQ/L (3.5-5.1); THYROID STIMULATING HORMONE 2.04 uIU/ML (0.358-3.740); TOTAL PROTEIN 7.6 GM/DL (6.4-8.2)
[2020-05-23 17:27] LABS: TOTAL 25(OH) VITAMIN D 20.1 NG/ML (30.0-100.0)
[2020-05-23 18:38] LABS: HEMOGLOBIN A1c 6.6 %
== END ==
LOC: M LAB REF 16:22
PROVIDERS: ATTEND Nurse Practitioner Family
DX: E78.5 Hyperlipidemia, unspecified (principal); F41.8 Other specified anxiety disorders; Z13.9 Encounter for screening, unspecified; E11.9 Type 2 diabetes mellitus without complications; I25.10 Atherosclerotic heart disease of native coronary artery without angina pectoris; M19.90 Unspecified osteoarthritis, unspecified site; E66.9 Obesity, unspecified; K21.9 Gastro-esophageal reflux disease without esophagitis; I10 Essential (primary) hypertension; Z79.899 Other long term (current) drug therapy

== ENCOUNTER → 2020-06-18 | Outpatient (CLI) | payer MEDICARE, MEDICAID ==
--- NOTE | 2020-06-19 15:48 | SLEEPCENT ---
NOCTURNAL POLYSOMNOGRAPHY DATE: 06/18/2020 ORDERED BY: GOPI Baltazar Nocturnal polysomnography was performed for the re-titration of pressure therapy in this patient with obstructive sleep apnea syndrome. For testing a was fit with a [employer] AirTouch F20 full face mask of small size was used, 8 cm of water pressure were applied to the circuit, and the lights were extinguished. 7 hours and 25 minutes of data were reviewed. There were 351.5 minutes of sleep identified. Sleep latency was normal at 10 minutes. REM latency was normal at 74 minutes. Sleep architecture was good with four REM cycles. Overall sleep efficiency was 80.3%. The electrocardiogram showed a sinus rhythm with an average heart rate of 68 beats per minute. EEG showed reasonably normal waveforms for wake and sleep. No focal events were identified. Respiratory events were found best palliated with CPAP at a pressure of +16 and remaining measures of sleep physiology were normal. IMPRESSION: Obstructive sleep apnea syndrome (G47.33). RECOMMENDATION: Nightly use of pressure therapy 16 cm of water.
== END ==
LOC: M SLEEP 20:00
PROVIDERS: ATTEND Nurse Practitioner Family
DX: G47.33 Obstructive sleep apnea (adult) (pediatric) (principal)

== ENCOUNTER 2020-08-29 13:30 | Outpatient (RCR) | payer MEDICARE, MEDICAID ==
[~2020-08-29 13:30] MED LIST changes: -LISI-538; +LISI20TA33
== END 2020-09-06 ==
LOC: M PT 13:30
PROVIDERS: ATTEND Physician Assistant
DX: I87.311 Chronic venous hypertension (idiopathic) with ulcer of right lower extremity (principal)

== ENCOUNTER → 2020-09-15 | Outpatient (REF) | payer MEDICARE, MEDICAID ==
[2020-09-15 11:49] LABS: BASO % 0.5 % (0.0-1.0); EOS # 0.3 10^3/uL (0.0-0.5); EOS % 3.8 % (0.0-3.0); HEMATOCRIT 37.3 % (36.0-47.0); HEMOGLOBIN 12.2 g/dl (12.0-15.5); LYMPH # 1.5 10^3/uL (1.5-5.0); LYMPH % 18.5 % (24.0-44.0); MEAN CORPUSCULAR HEMOGLOBIN 29.6 pg (27.0-33.0); MEAN CORPUSCULAR HGB CONC 32.7 g/dl (32.0-36.5); MEAN CORPUSCULAR VOLUME 90.5 fl (80.0-96.0); MONO # 0.7 10^3/uL (0.0-0.8); MONO % 8.3 % (2.0-8.0); NEUTROPHILS # 5.6 10^3/uL (1.5-8.5); NEUTROPHILS % 67.8 % (36.0-66.0); PLATELET COUNT, AUTOMATED 277 10^3/uL (150-450); RED BLOOD COUNT 4.12 10^6/uL (4.00-5.40); WHITE BLOOD COUNT 8.2 10^3/uL (4.0-10.0)
[2020-09-15 12:39] LABS: ALBUMIN 3.8 GM/DL (3.2-5.2); BILIRUBIN,TOTAL 0.4 MG/DL (0.2-1.0); CALCIUM LEVEL 9.1 MG/DL (8.5-10.1); CHOLESTEROL RISK RATIO 3.944 (<5); CREATININE FOR GFR 1.16 MG/DL (0.55-1.30); GLOMERULAR FILTRATION RATE 50.9 (>51); POTASSIUM SERUM 3.7 MEQ/L (3.5-5.1); THYROID STIMULATING HORMONE 3.08 uIU/ML (0.358-3.740); TOTAL PROTEIN 7.5 GM/DL (6.4-8.2)
[2020-09-15 13:26] LABS: TOTAL 25(OH) VITAMIN D 16.4 NG/ML (30.0-100.0)
== END ==
LOC: M LAB REF 11:12
PROVIDERS: ATTEND Nurse Practitioner Family
DX: I12.9 Hypertensive chronic kidney disease with stage 1 through stage 4 chronic kidney disease, or unspecified chronic kidney disease (principal); N18.9 Chronic kidney disease, unspecified; E66.9 Obesity, unspecified

== ENCOUNTER → 2020-12-27 | Outpatient (REF) | payer MEDICARE, MEDICAID ==
[2020-12-27 19:37] LABS: BASO % 0.4 % (0.0-1.0); EOS # 0.3 10^3/uL (0.0-0.5); HEMATOCRIT 36.4 % (36.0-47.0); HEMOGLOBIN 11.5 g/dl (12.0-15.5); LYMPH # 1.4 10^3/uL (1.5-5.0); LYMPH % 16.1 % (24.0-44.0); MEAN CORPUSCULAR HEMOGLOBIN 29.1 pg (27.0-33.0); MEAN CORPUSCULAR HGB CONC 31.6 g/dl (32.0-36.5); MEAN CORPUSCULAR VOLUME 92.2 fl (80.0-96.0); MONO # 0.7 10^3/uL (0.0-0.8); MONO % 7.6 % (2.0-8.0); NEUTROPHILS # 6.5 10^3/uL (1.5-8.5); NEUTROPHILS % 72.3 % (36.0-66.0); PLATELET COUNT, AUTOMATED 303 10^3/uL (150-450); RED BLOOD COUNT 3.95 10^6/uL (4.00-5.40)
[2020-12-27 20:39] LABS: ALBUMIN 3.6 GM/DL (3.2-5.2); BILIRUBIN,TOTAL 0.4 MG/DL (0.2-1.0); CHOLESTEROL RISK RATIO 3.888 (<5); CREATININE FOR GFR 1.08 MG/DL (0.55-1.30); FREE T4 0.94 NG/DL (0.76-1.46); GLOMERULAR FILTRATION RATE 55.3 (>51); POTASSIUM SERUM 4.4 MEQ/L (3.5-5.1); THYROID STIMULATING HORMONE 2.5 uIU/ML (0.358-3.740); TOTAL 25(OH) VITAMIN D 17.6 NG/ML (30.0-100.0); TOTAL PROTEIN 7.4 GM/DL (6.4-8.2)
[2020-12-27 20:47] LABS: HEMOGLOBIN A1c 7.3 %
== END ==
LOC: M LAB REF 16:34
PROVIDERS: ATTEND Nurse Practitioner Family
DX: I12.9 Hypertensive chronic kidney disease with stage 1 through stage 4 chronic kidney disease, or unspecified chronic kidney disease (principal); E66.9 Obesity, unspecified; N18.9 Chronic kidney disease, unspecified

== ENCOUNTER → 2021-02-22 | Outpatient (REF) | payer MEDICARE, MEDICAID | LOC: M LAB REF 19:04 | PROVIDERS: ATTEND Internal Medicine Nephrology | DX: N18.31 Chronic kidney disease, stage 3a (principal) ==

== ENCOUNTER → 2021-10-15 | Outpatient (CLI) | payer MEDICARE, MEDICAID ==
[~2021-10-15] MED LIST changes: +ALLO300T2 PO; +BUSP10TA PO; +CARV6.25 PO; +CETI-24 PO; +FERR325T3 PO; +GLIP5TAB20 PO; +LOSA25TA13 PO; +POTA-151; -POTA20TA6; +ROSU20TA5 PO
== END ==
LOC: M LABSMTC 10:51
PROVIDERS: ATTEND Anesthesiology
DX: Z01.812 Encounter for preprocedural laboratory examination (principal)

== ENCOUNTER 2021-10-19 06:38 | Day surgery (SDC) | payer MEDICARE, MEDICAID ==
[~2021-10-19] VITALS: Ht 157.5 cm; Wt 139.4 kg
[~2021-10-19 06:38] MED LIST changes: +NS 1,000 ML IV ONE
[2021-10-19 09:25] VITALS: BP 163/79
[2021-10-19] MEDS ORDERED: LIDOCAINE 2% 100MG/5ML SDV (FOR ANES.) As Ordered ONE (09:44)
[2021-10-19] MEDS ORDERED: propofoL 200 MG/20 ML VIAL As Ordered ONE (09:44)
== END 2021-10-19 09:32 | disposition home or self-care (01) ==
LOC: M OPP 06:38
PROVIDERS: ATTEND Internal Medicine Gastroenterology
DX: Z12.11 Encounter for screening for malignant neoplasm of colon (principal); Z80.0 Family history of malignant neoplasm of digestive organs; D12.6 Benign neoplasm of colon, unspecified; K57.30 Diverticulosis of large intestine without perforation or abscess without bleeding; K64.8 Other hemorrhoids; I51.9 Heart disease, unspecified; I89.0 Lymphedema, not elsewhere classified; E11.9 Type 2 diabetes mellitus without complications; G47.33 Obstructive sleep apnea (adult) (pediatric); Z79.02 Long term (current) use of antithrombotics/antiplatelets; Z79.84 Long term (current) use of oral hypoglycemic drugs; Z79.899 Other long term (current) drug therapy

== ENCOUNTER 2022-02-09 17:21 | Emergency (ER) | payer MEDICARE, MEDICAID ==
[~2022-02-09] VITALS: Ht 157.5 cm; Wt 146.8 kg
[~2022-02-09 17:21] MED LIST changes: -NS 1,000 ML IV ONE
[2022-02-09 20:44] LABS: BASO % 0.3 % (0.0-1.0); EOS # 0.4 10^3/uL (0.0-0.5); EOS % 4.2 % (0.0-3.0); HEMATOCRIT 35.9 % (36.0-47.0); HEMOGLOBIN 11.9 g/dl (12.0-15.5); LYMPH # 2.2 10^3/uL (1.5-5.0); LYMPH % 23.4 % (24.0-44.0); MEAN CORPUSCULAR HEMOGLOBIN 30.3 pg (27.0-33.0); MEAN CORPUSCULAR HGB CONC 33.1 g/dl (32.0-36.5); MEAN CORPUSCULAR VOLUME 91.3 fl (80.0-96.0); MONO # 0.7 10^3/uL (0.0-0.8); MONO % 7.3 % (2.0-8.0); NEUTROPHILS # 6.1 10^3/uL (1.5-8.5); NEUTROPHILS % 64.4 % (36.0-66.0); PLATELET COUNT, AUTOMATED 306 10^3/uL (150-450); RED BLOOD COUNT 3.93 10^6/uL (4.00-5.40); WHITE BLOOD COUNT 9.5 10^3/uL (4.0-10.0)
[2022-02-09 21:24] LABS: ALBUMIN 3.6 GM/DL (3.2-5.2); ALT/SGPT 31 U/L (12-78); BILIRUBIN,DIRECT < 0.1 MG/DL (0.0-0.2); BILIRUBIN,TOTAL 0.3 MG/DL (0.2-1.0); TOTAL PROTEIN 7.6 GM/DL (6.4-8.2)
[2022-02-09] MEDS ORDERED: REPLGEL VA ×2 (22:21→22:22)
[2022-02-09 22:26] LABS: GC DNA AMPLIFICATION NEGATIVE (NEGATIVE)
[2022-02-09 22:35] VITALS: BP 140/64
== END 2022-02-09 22:37 | disposition home or self-care (01) ==
LOC: M ED 17:21
DX: N85.00 Endometrial hyperplasia, unspecified (principal); N76.0 Acute vaginitis; G47.30 Sleep apnea, unspecified; M10.9 Gout, unspecified; J44.9 Chronic obstructive pulmonary disease, unspecified

== ENCOUNTER → 2022-05-13 | Outpatient (REF) | payer MEDICARE, MEDICAID ==
[~2022-05-13] MED LIST changes: +REPLGEL VA
[2022-05-13 15:21] LABS: CHOLESTEROL RISK RATIO 3.19 (<5); HDL CHOLESTEROL 38.8 MG/DL (>40); LDL CHOLESTEROL 35.6 MG/DL (<100)
[2022-05-13 16:42] LABS: HEMOGLOBIN A1c 7.4 % (4.0-6.0)
== END ==
LOC: M LAB REF 12:39
PROVIDERS: ATTEND Nurse Practitioner Family
DX: E11.9 Type 2 diabetes mellitus without complications (principal); E78.5 Hyperlipidemia, unspecified

== ENCOUNTER → 2022-08-29 | Outpatient (REF) | payer MEDICARE, MEDICAID | LOC: M LAB REF 17:09 | PROVIDERS: ATTEND Nurse Practitioner Family | DX: I50.32 Chronic diastolic (congestive) heart failure (principal) ==

== ENCOUNTER → 2022-09-19 | Outpatient (REF) | payer MEDICARE, MEDICAID ==
[2022-09-19 17:53] LABS: ALBUMIN 3.8 G/DL (3.2-5.2); BILIRUBIN,TOTAL 0.4 MG/DL (0.3-1.2); CALCIUM LEVEL 9.6 MG/DL (8.3-10.6); CHOLESTEROL RISK RATIO 2.89 (<5); CREATININE FOR GFR 1.17 MG/DL (0.55-1.30); GLOMERULAR FILTRATION RATE 50.1 (>45); HDL CHOLESTEROL 39.4 MG/DL (>40); LDL CHOLESTEROL 31.2 MG/DL (<100); NON-HDL-C 74.6 MG/DL; POTASSIUM SERUM 4.5 MMOL/L (3.5-5.1); TOTAL PROTEIN 7.6 G/DL (5.7-8.2)
[2022-09-19 17:54] LABS: HEMOGLOBIN A1c 8.6 % (4.0-6.0)
== END ==
LOC: M LAB REF 16:42
PROVIDERS: ATTEND Nurse Practitioner Family
DX: E78.5 Hyperlipidemia, unspecified (principal); E11.9 Type 2 diabetes mellitus without complications

== ENCOUNTER → 2022-12-17 | Outpatient (REF) | payer MEDICARE, MEDICAID ==
[~2022-12-17] MED LIST changes: -ROSU20TA5 PO; +ROSU20TA61 PO
[2022-12-17 18:43] LABS: HEMOGLOBIN A1c 7.6 % (4.0-6.0)
[2022-12-17 19:03] LABS: BILIRUBIN,TOTAL 0.6 MG/DL (0.3-1.2); CREATININE FOR GFR 1.25 MG/DL (0.55-1.30); GLOMERULAR FILTRATION RATE 46.4 (>45); POTASSIUM SERUM 4.6 MMOL/L (3.5-5.1); TOTAL PROTEIN 7.8 G/DL (5.7-8.2)
== END ==
LOC: M LAB REF 16:32
PROVIDERS: ATTEND Nurse Practitioner Family
DX: E11.9 Type 2 diabetes mellitus without complications (principal)

== ENCOUNTER → 2023-05-28 | Outpatient (REF) | payer MEDICARE, MEDICAID ==
[2023-05-28 19:22] LABS: CREATININE, URINE 229.4 MG/DL; CREATININE,RANDOM URINE 229.4 MG/DL; MAU/CREAT RATIO 9.5 MCG/MG (0.0-30.0)
== END ==
LOC: M LAB REF 18:17
PROVIDERS: ATTEND Nurse Practitioner Family
DX: E11.9 Type 2 diabetes mellitus without complications (principal)

== ENCOUNTER → 2023-06-24 | Outpatient (CLI) | payer MEDICARE, MEDICAID | LOC: M WHC 12:31 | PROVIDERS: ATTEND Nurse Practitioner Family | DX: R92.8 Other abnormal and inconclusive findings on diagnostic imaging of breast (principal); N60.12 Diffuse cystic mastopathy of left breast; N60.11 Diffuse cystic mastopathy of right breast | CPT/HCPCS: 76641; 77065; G0279 ==

== ENCOUNTER → 2023-08-18 | Outpatient (REF) | payer MEDICARE, MEDICAID ==
[2023-08-18 19:33] LABS: ALBUMIN 3.8 G/DL (3.2-5.2); BILIRUBIN,TOTAL 0.5 MG/DL (0.3-1.2); CALCIUM LEVEL 9.1 MG/DL (8.3-10.6); GLOMERULAR FILTRATION RATE 59.8 (>45); MAGNESIUM LEVEL 1.5 MG/DL (1.8-2.4); POTASSIUM SERUM 4.7 MMOL/L (3.5-5.1); TOTAL PROTEIN 7.6 G/DL (5.7-8.2)
[2023-08-18 19:35] LABS: FREE T4 1.06 NG/DL (0.89-1.76); THYROID STIMULATING HORMONE 2.815 uIU/ML (0.55-4.78)
== END ==
LOC: M LAB REF 17:53
PROVIDERS: ATTEND Nurse Practitioner Family
DX: E11.9 Type 2 diabetes mellitus without complications (principal); E83.42 Hypomagnesemia; R94.6 Abnormal results of thyroid function studies

== ENCOUNTER → 2023-08-28 | Outpatient (CLI) | payer MEDICARE, MEDICAID | LOC: M RAD 14:57 | PROVIDERS: ATTEND Ophthalmology | DX: H34.239 Retinal artery branch occlusion, unspecified eye (principal); I10 Essential (primary) hypertension; H53.453 Other localized visual field defect, bilateral ==

== ENCOUNTER → 2023-10-01 | Outpatient (CLI) | payer MEDICARE, MEDICAID | LOC: M PLAIMG 10:31 | PROVIDERS: ATTEND Nurse Practitioner Family | DX: H34.11 Central retinal artery occlusion, right eye (principal) ==

== ENCOUNTER → 2024-03-10 | Outpatient (REF) | payer MEDICARE, MEDICAID ==
[~2024-03-10] MED LIST changes: -ROSU20TA61 PO; +ROSU20TA86 PO
[2024-03-10 18:31] LABS: HEMOGLOBIN A1c 7.4 % (4.0-6.0)
[2024-03-10 18:38] LABS: ALBUMIN 3.9 G/DL (3.2-5.2); BILIRUBIN,TOTAL 0.4 MG/DL (0.3-1.2); CALCIUM LEVEL 10.5 MG/DL (8.3-10.6); CREATININE FOR GFR 1.2 MG/DL (0.55-1.30); GLOMERULAR FILTRATION RATE 48.3 (>45); POTASSIUM SERUM 4.5 MMOL/L (3.5-5.1); TOTAL PROTEIN 7.9 G/DL (5.7-8.2)
== END ==
LOC: M LAB REF 16:30
PROVIDERS: ATTEND Nurse Practitioner Family
DX: I12.9 Hypertensive chronic kidney disease with stage 1 through stage 4 chronic kidney disease, or unspecified chronic kidney disease (principal); E66.9 Obesity, unspecified; N18.9 Chronic kidney disease, unspecified

== ENCOUNTER → 2024-04-26 | Outpatient (CLI) | payer MEDICARE, MEDICAID | LOC: M WHC 13:00 | PROVIDERS: ATTEND Nurse Practitioner Family | DX: E04.1 Nontoxic single thyroid nodule (principal) ==

== ENCOUNTER → 2024-05-27 | Outpatient (CLI) | payer MEDICARE, MEDICAID | LOC: M PLAIMG 12:50 | PROVIDERS: ATTEND Nurse Practitioner Family | DX: R91.8 Other nonspecific abnormal finding of lung field (principal) ==

== ENCOUNTER 2024-08-06 18:22 | Emergency (ER) | payer MEDICARE, MEDICAID ==
[~2024-08-06] VITALS: Ht 157.5 cm; Wt 128.0 kg
[2024-08-06 19:33] LABS: BASO # 0.1 10^3/uL (0.0-0.2); BASO % 0.6 % (0.0-1.0); EOS # 0.1 10^3/uL (0.0-0.5); EOS % 1.6 % (0.0-3.0); HEMATOCRIT 40.8 % (36.0-47.0); HEMOGLOBIN 13.7 g/dl (12.0-15.5); LYMPH # 3.3 10^3/uL (1.5-5.0); LYMPH % 37.9 % (24.0-44.0); MEAN CORPUSCULAR HEMOGLOBIN 30.4 pg (27.0-33.0); MEAN CORPUSCULAR HGB CONC 33.6 g/dl (32.0-36.5); MEAN CORPUSCULAR VOLUME 90.5 fl (80.0-96.0); MONO # 0.6 10^3/uL (0.0-0.8); MONO % 7.4 % (2.0-8.0); NEUTROPHILS # 4.5 10^3/uL (1.5-8.5); NEUTROPHILS % 52.3 % (36.0-66.0); PLATELET COUNT, AUTOMATED 359 10^3/uL (150-450); RED BLOOD COUNT 4.51 10^6/uL (4.00-5.40); WHITE BLOOD COUNT 8.6 10^3/uL (4.0-10.0)
[2024-08-06 20:00] LABS: ALBUMIN 4.2 G/DL (3.2-5.2); BILIRUBIN,DIRECT 0.2 MG/DL (<0.4); BILIRUBIN,TOTAL 0.7 MG/DL (0.3-1.2); CREATININE FOR GFR 1.51 MG/DL (0.55-1.30); GLOMERULAR FILTRATION RATE 37.1 (>45)
[2024-08-06 22:19] LABS: KETONE, URINE AUTO RFX NEGATIVE (NEGATIVE); LEUKOCYTE ESTERASE UR AUTO RFX NEGATIVE (NEGATIVE); MUCUS, URINE RFX SMALL (NEGATIVE); NITRITE, URINE AUTO RFX NEGATIVE (NEGATIVE); RBC, URINE AUTO RFX 0 /HPF (0-3); SQUAM EPITHELIAL CELL UR AURFX 4 /HPF (0-6); WBC, URINE AUTO RFX 3 /HPF (0-3)
[2024-08-06 22:42] VITALS: TEMP 96.6
[2024-08-06] MEDS: ONDANSETRON 4MG 2ML VIAL IV ONE (23:53)
[2024-08-06] MEDS: MORPHINE 4 MG/ML 1ML VIAL IV PRN (23:53)
[2024-08-07] MEDS ORDERED: ISOVUE-370 76% 100ML VIAL As Ordered ONE (00:01)
[2024-08-07] MEDS: NS (Normal Saline) 0.9% 1,000 ML IV ONE (00:25)
[2024-08-07] MEDS ORDERED: PYRI1TAB5 PO (02:37)
[2024-08-07] MEDS: PHENAZOPYRIDINE 100 MG TAB PO ONE (02:56)
[2024-08-07 03:00] VITALS: BP 134/72; O2SAT 97
== END 2024-08-07 03:08 | disposition home or self-care (01) ==
LOC: M ED 18:22
DX: R30.0 Dysuria (principal); I50.22 Chronic systolic (congestive) heart failure; E11.9 Type 2 diabetes mellitus without complications; I11.0 Hypertensive heart disease with heart failure; Z79.84 Long term (current) use of oral hypoglycemic drugs; Z79.899 Other long term (current) drug therapy
CPT/HCPCS: 36415; 74177; 80048; 80076; 81001; 83690; 85025; 96361; 96374; 99284; J2405; Q9967

== ENCOUNTER → 2024-08-16 | Outpatient (REF) | payer MEDICARE, MEDICAID ==
[~2024-08-16] MED LIST changes: +PYRI1TAB5 PO
[2024-08-16 18:20] LABS: CHOLESTEROL RISK RATIO 3.54 (<5); HDL CHOLESTEROL 36.4 MG/DL (>40); LDL CHOLESTEROL 13.2 MG/DL (<100); NON-HDL-C 92.6 MG/DL
[2024-08-16 18:24] LABS: THYROID STIMULATING HORMONE 3.779 uIU/ML (0.55-4.78)
== END ==
LOC: M LAB REF 17:41
PROVIDERS: ATTEND Nurse Practitioner Family
DX: E66.01 Morbid (severe) obesity due to excess calories (principal); E07.9 Disorder of thyroid, unspecified

== ENCOUNTER → 2025-02-25 | Outpatient (REF) | payer MEDICARE, MEDICAID ==
[~2025-02-25] MED LIST changes: +GLIP-318 PO; -GLIP5TAB20 PO
[2025-02-25 19:08] LABS: IRON (FE) 60.0 UG/DL (50-170); PERCENT SATURATION 20.1 % (13.2-45.0)
== END ==
LOC: M LAB REF 17:32
PROVIDERS: ATTEND Nurse Practitioner Family
DX: D50.9 Iron deficiency anemia, unspecified (principal)

== ENCOUNTER → 2025-05-11 | Outpatient (CLI) | payer MEDICARE, MEDICAID | LOC: M WHC 12:50 | PROVIDERS: ATTEND Student in an Organized Health Care Education/Training Program | DX: Z12.31 Encounter for screening mammogram for malignant neoplasm of breast (principal); R92.323 Mammographic fibroglandular density, bilateral breasts ==

== ENCOUNTER → 2025-05-31 | Outpatient (CLI) | payer MEDICARE, MEDICAID | LOC: M RAD 13:14 | PROVIDERS: ATTEND Nurse Practitioner Family | DX: E04.2 Nontoxic multinodular goiter (principal) ==

== ENCOUNTER → 2025-06-07 | Outpatient (CLI) | payer MEDICARE, MEDICAID | LOC: M CARPUL 10:52 | PROVIDERS: ATTEND Physician Assistant | DX: I50.32 Chronic diastolic (congestive) heart failure (principal); R01.1 Cardiac murmur, unspecified ==